=== PATIENT | male | born 1980 | race Caucasian/White ===

== ENCOUNTER 2021-07-18 01:01 | Observation (INO) ==
[2021-07-18 01:16] VITALS: TEMP 98.6
[2021-07-18 01:23] LABS: Basophils # 0.1 K/mcL (0.0-0.2); Basophils % 0.8 %; Eosinophils # 0.4 K/mcL (0.0-0.6); Eosinophils % 3.7 %; Hematocrit 47.2 % (37.5-50.1); Hemoglobin 15.8 g/dL (12.9-16.9); Immature Granulocytes % 0.6 % (0-4); Lymphocytes # 2.5 K/mcL (0.6-4.6); Lymphocytes % 21.2 %; Mean Corpuscular HGB Conc 33.5 g/dL (31.6-35.5); Mean Corpuscular Hemoglobin 30.2 pg (28.0-33.3); Mean Corpuscular Volume 90.2 fL (83.0-100.0); Mean Platelet Volume 9.6 fL (9.4-12.4); Monocytes # 0.8 K/mcL (0.0-1.3); Monocytes % 6.3 %; Platelet Count 294 K/mcL (140-400); Red Blood Count 5.23 M/mcL (4.19-5.50); Red Cell Distribution Width 13.1 % (11.5-14.5); Segmented Neutrophils % 67.4 %; White Blood Count 11.9 K/mcL (4.3-11.1)
[2021-07-18 01:30] LABS: INR 1.1; Prothrombin Time 12.7 Seconds (9.4-12.1)
[2021-07-18 01:32] LABS: Activated Partial Thrombo Time 32.9 Seconds (26.0-36.0)
[2021-07-18 01:39] LABS: BUN/Creatinine Ratio 10 (6-26); Blood Urea Nitrogen 11 mg/dL (6-20); Calcium 9.5 mg/dL (8.6-10.3); Carbon Dioxide 30 mEq/L (23-29); Chloride 104 mEq/L (98-107); Glucose 159 mg/dL (70-105); Osmolality,Calculated 293 (280-300); Sodium 140 mEq/L (136-145); eGFR For African Americans > 60 (> 60); eGFR For Non-African Americans > 60 (> 60)
[2021-07-18 01:41] LABS: Troponin I < 0.03 ng/mL (< 0.04)
[2021-07-18] MEDS ORDERED: Aspirin 81 MG TAB.CHEW PO STA (02:15)
[2021-07-18 02:37] VITALS: BP 146/84; PULSE 87; RESP 18; O2SAT 97
[2021-07-18] MEDS ORDERED: Acetaminophen 325 MG TABLET PO PRN ×2 (10:08→10:12)
[2021-07-18] MEDS ORDERED: Naloxone 0.4 MG/ML INJ IVP PRN (10:08)
[2021-07-18] MEDS ORDERED: Melatonin 3 MG TABLET PO PRN (10:08)
[2021-07-18] MEDS ORDERED: Ondansetron ODT 4 MG TAB.RAPDIS SL PRN (10:08)
[2021-07-18] MEDS ORDERED: Ondansetron 4 MG/2 ML VIAL IVP PRN (10:08)
[2021-07-18] MEDS ORDERED: Mag Hydrox/Al Hydrox/Simeth 30 ML UDC PO PRN ×2 (10:08→10:12)
[2021-07-18] MEDS ORDERED: MOM Conc 10 ML UD.LIQ PO PRN (10:08)
[2021-07-18] MEDS ORDERED: Perflutren Lipid Microsphere 1.3 ML in 0.9 % Sodium Chloride 8.7 ML IVP PRN (10:22)
== END 2021-07-18 11:45 | disposition left against medical advice (07) ==
LOC: EMEROOGRE 01:01 → INPGRE 01:01
PROVIDERS: ADMIT Internal Medicine; ATTEND Internal Medicine